=== PATIENT | female | born 1985 | race Caucasian/White ===

== ENCOUNTER 2016-04-30 06:49 | Day surgery (SDC) | payer BC, MEDICAID ==
[2016-04-27 10:50] LABS: HEMOGLOBIN 12.9 g/dL (12.0-15.5); HGB HCT DIFFERENCE -0.3; MEAN CORPUSCULAR VOLUME 88 fl (80-97); RED BLOOD COUNT 4.44 10^6/uL (3.72-5.28); RED CELL DISTRIBUTION WIDTH 14.3 % (11.5-14.0); WHITE BLOOD COUNT 6.6 10^3/uL (4.0-10.5)
[~2016-04-30 06:49] MED LIST: FENTANYL CITRATE INJ/PF 100 MCG/2 ML AMPUL ONE; LACTATED RINGERS 1000 ML IV PRN; LIDOCAINE 0.5% INJ-PF (5 MG/ML) 50 ML SDV SUBCUT PRN; MIDAZOLAM 2 MG/2 ML INJ ONE; PROPOFOL INJ 200 MG/20 ML VIAL IV ONE
[2016-04-30 08:40] LABS: APPEARANCE,URINE SLIGHTLY-CLOUDY; BILIRUBIN,URINE NEGATIVE (NEGATIVE); GLUCOSE, URINE NEGATIVE (NEGATIVE); KETONES,URINE NEGATIVE (NEGATIVE); NITRITE,URINE NEGATIVE (NEGATIVE); PROTEIN,URINE NEGATIVE (NEGATIVE); URINE SPECIFIC GRAVITY 1.024; UROBILINOGEN,URINE NEGATIVE mg/dL (<2.0)
[2016-04-30 08:41] LABS: LEUKOCYTE ESTERASE,URINE TRACE (NEGATIVE)
[2016-04-30] MEDS ORDERED: OXYCODONE-ACETAMINOPHEN 5-325 MG TABLET PO PRN ×4 (09:14→12:00)
[2016-04-30] MEDS ORDERED: PROMETHAZINE HCL INJ 25 MG/1 ML VIAL IV PRN (09:14)
[2016-04-30] MEDS ORDERED: FENTANYL CITRATE INJ/PF 100 MCG/2 ML AMPUL IV PRN ×3 (09:14)
[2016-04-30] MEDS ORDERED: MEPERIDINE HCL/PF INJ 25 MG/1 ML DISP.SYRIN IV PRN (09:14)
[2016-04-30] MEDS ORDERED: DIPHENHYDRAMINE HCL 50 MG/ML VIAL IV PRN (09:14)
--- NOTE | 2016-04-30 09:58 | OPERATIVE REPORT E ---
Operative Report NAME: BAIRON HOFFMAN : 1985 AGE: 31Y DATE OF SURGERY: 04/30/2016 ROOM: PREOPERATIVE DIAGNOSIS: Undesired fertility. POSTOPERATIVE DIAGNOSIS: Undesired fertility. PROCEDURE: Laparoscopic bilateral salpingectomy. SURGEON: EH AMBRIZ M.D. SR. MEDIA MANAGER: Jamilah Tadeo, distribution center assistant student. ANESTHESIA: Dr. Sánchez with general. FINDINGS: Normal uterus, tubes and ovaries. COMPLICATIONS: None. ESTIMATED BLOOD LOSS: 20 mL. SPECIMENS REMOVED: Bilateral fallopian tubes. PROCEDURE IN DETAIL: The patient was taken to the operating room and prepared and draped in a normal sterile fashion in a dorsal lithotomy position. Under sterile conditions, an in-and-out cath of approximately 25 mL of clear urine was performed. A sterile speculum was then placed into the vagina and the cervix was prepped with Betadine, and the cervix was grasped on the anterior lip with a single tooth tenaculum. A Hulka clamp was placed at the cervix for uterine manipulation without difficulty. The speculum was removed and attention was turned to the upper portion of the case after gloves were changed. An umbilical skin incision was made with a scalpel and the Veress needle was introduced into the peritoneal cavity. I had difficulty placing the Veress needle secondary to the patient's body habitus so Optiview was used for peritoneal cavity entry. The abdomen was inflated with approximately 2 L of CO2 gas. The camera was introduced and under direct visualization two 5-mm ports were placed approximately 10 cm on either side of the umbilicus. Instruments were then placed and the bowel was swept away with an atraumatic grasper. Beginning with the right fallopian tube, the LigaSure was introduced through one of the ports and this fallopian tube was removed with the LigaSure following the mesosalpinx and transecting it at the cornua closest to the uterus. This was removed and then a similar procedure was performed on the patient's left fallopian tube without difficulty. Hemostasis was maintained and verified at the end. The instruments were then removed. The ports were removed under direct visualization. The abdomen was deflated of the CO2 gas through the umbilical port without difficulty. The skin was then closed with 4-0 Vicryl at all 3 sites. The patient tolerated procedure well. Sponge, lap and needle counts were correct x2. The patient was taken to recovery in stable condition. DICTATING PHYSICIAN: EH AMBRIZ M.D. [id number] PHY#: [id number] ID: [id number] JOB#: [id number] ACCT: [id number] cc:EH AMBRIZ M.D. >
[2016-04-30] MEDS ORDERED: FENTANYL CITRATE INJ/PF 100 MCG/2 ML AMPUL ONE (10:08)
[2016-04-30] MEDS ORDERED: DEXAMETHASONE SOD PHOSPHATE INJ 4 MG/1 ML VIAL ONE (10:46)
[2016-04-30] MEDS ORDERED: ONDANSETRON HCL INJ/PF 4 MG/2 ML SDV ONE (10:46)
[2016-04-30] MEDS ORDERED: LIDOCAINE 2% INJ-PF (20 MG/ML) 10 ML AMPUL ONE (10:46)
[2016-04-30] MEDS ORDERED: SUCCINYLCHOLINE CHLORIDE INJ 200 MG/10 ML VIAL ONE (10:46)
[2016-04-30] MEDS ORDERED: KETOROLAC TROMETHAMINE INJ/PF 30 MG/1 ML SDV ONE (11:15)
[2016-04-30] MEDS ORDERED: IBUPROFEN 800 MG TABLET PO PRN (12:00)
[2016-04-30] MEDS ORDERED: MORPHINE SULFATE 10 MG/ML INJ IM PRN (12:00)
[2016-04-30 12:45] VITALS: BP 112/74
== END 2016-04-30 12:35 | disposition home or self-care (01) ==
LOC: OROUT 06:49
PROVIDERS: ATTEND Obstetrics & Gynecology
PROC: 0UT74ZZ Resection of Bilateral Fallopian Tubes, Percutaneous Endoscopic Approach (ICD-10-PCS; principal; 2016-04-30 09:00)
DX: Z30.2 Encounter for sterilization (principal); J45.909 Unspecified asthma, uncomplicated; Z79.51 Long term (current) use of inhaled steroids
CPT/HCPCS: 36415; 85027; 81005; 81025; 88302 ×2; 58661; J2250; J1100; J3010; J1885; J0330; J2405; J2704; J3490; 81001; 840

== ENCOUNTER 2016-09-28 03:16 | Emergency (ER) | payer BC, MEDICAID ==
[2016-09-28] MEDS ORDERED: METOCLOPRAMIDE HCL 10 MG TABLET PO ONE (06:55)
--- NOTE | 2016-09-28 06:57 | ER Document Report ---
ED General - General Chief Complaint: Flank Pain Stated Complaint: BACK PAIN Time Seen by Provider: 09/28/16 06:42 Mode of Arrival: Ambulatory Information source: Patient Notes: 31-year-old female presents with complaints of right lateral back cramping pain. Patient notes symptoms started initially with nausea and vomiting. Patient notes she has an intolerance to dairy and this happens often. Patient notes after she vomits her pain usually goes away. Today she vomited in the parking lot noted her symptoms were improving and while waiting in the ED she states her symptoms have all since resolved. Patient denies any fevers or chills TRAVEL OUTSIDE OF THE [place] IN LAST 30 DAYS: No - HPI Onset: Just prior to arrival Onset/Duration: Sudden Quality of pain: Cramping Severity: Mild Pain Level: 1 Associated symptoms: Body/muscle aches, Nausea, Vomiting Exacerbated by: Denies Relieved by: Other - Vomiting Similar symptoms previously: Yes Recently seen / treated by doctor: No - Related Data Allergies/Adverse Reactions: No Known Allergies Allergy (Verified 02/08/16 12:42) Home Medications: Current Home Medications RX: No Home Medications 09/28/16 [History] Past Medical History - Social History Smoking Status: Never Smoker Cigarette use (# per day): No Chew tobacco use (# tins/day): No Smoking Education Provided: No Family History: Reviewed & Not Pertinent Patient has suicidal ideation: No Patient has homicidal ideation: No - Past Medical History Cardiac Medical History: Denies: Hx Coronary Artery Disease, Hx Heart Attack, Hx Hypertension Pulmonary Medical History: Reports: Hx Asthma - inhalers, Hx Bronchitis - hx of Denies: Hx COPD, Hx Pneumonia Neurological Medical History: Denies: Hx Cerebrovascular Accident, Hx Seizures Renal/ Medical History: Denies: Hx Peritoneal Dialysis Musculoskeltal Medical History: Denies Hx Arthritis - Immunizations Hx Diphtheria, Pertussis, Tetanus Vaccination: Yes Review of Systems - Review of Systems Notes: REVIEW OF SYSTEMS: CONSTITUTIONAL : Denies fever, chills, or sweats. Denies recent illness. EENT: Denies eye, ear, throat, or mouth pain or symptoms. Denies nasal or sinus congestion or discharge. Denies throat, tongue, or mouth swelling or difficulty swallowing. CARDIOVASCULAR: Denies chest pain. Denies palpitations or racing or irregular heart beat. Denies ankle edema. RESPIRATORY: Denies cough, cold, or chest congestion. Denies shortness of breath, difficulty breathing, or wheezing. GASTROINTESTINAL: Admits nausea vomiting GENITOURINARY: Denies difficulty urinating, painful urination, burning, frequency, blood in urine, or discharge. FEMALE GENITOURINARY: Denies vaginal bleeding, heavy or abnormal periods, irregular periods. Denies vaginal discharge or odor. MUSCULOSKELETAL: Right upper back pain SKIN: Denies rash, lesions or sores. HEMATOLOGIC : Denies easy bruising or bleeding. LYMPHATIC: Denies swollen, enlarged glands. NEUROLOGICAL: Denies confusion or altered mental status. Denies passing out or loss of consciousness. Denies dizziness or lightheadedness. Denies headache. Denies weakness or paralysis or loss of use of either side. Denies problems with gait or speech. Denies sensory loss, numbness, or tingling. Denies seizures. PSYCHIATRIC: Denies anxiety or stress. Denies depression, suicidal ideation, or homicidal ideation. ALL OTHER SYSTEMS REVIEWED AND NEGATIVE. PHYSICAL EXAMINATION: GENERAL: Well-appearing, well-nourished and in no acute distress. HEAD: Atraumatic, normocephalic. EYES: Pupils equal round and reactive to light, extraocular movements intact, conjunctiva are normal. ENT: Nares patent, oropharynx clear without exudates. Moist mucous membranes. NECK: Normal range of motion, supple without lymphadenopathy LUNGS: Breath sounds clear to auscultation bilaterally and equal. No wheezes rales or rhonchi. HEART: Regular rate and rhythm without murmurs ABDOMEN: Soft, nontender, nondistended abdomen. No guarding, no rebound. No masses appreciated. Female : deferred Musculoskeletal: Normal range of motion, no pitting or edema. No cyanosis. NEUROLOGICAL: Cranial nerves grossly intact. Normal speech, normal gait. Normal sensory, motor exams PSYCH: Normal mood, normal affect. SKIN: Warm, Dry, normal turgor, no rashes or lesions noted. Dictation was performed using [employer] voice recognition software Physical Exam - Vital signs Vitals: Temp Pulse Resp BP Pulse Ox 97.3 F 53 L 18 121/72 100 09/28/16 03:39 09/28/16 03:39 09/28/16 03:39 09/28/16 03:39 09/28/16 03:39 Course - Re-evaluation Re-evalutation: 09/28/16 06:57 Patient's pain was located around the T4 region right around the scapula, at this time she is completely asymptomatic denies any complaints. But she wishes to make sure she is fine before she goes home 09/28/16 08:56 Patient's liver enzymes are noted to be quite elevated, ultrasound pending at this time 09/28/16 10:[address] Carvajal, he requests mrcp 09/28/16 14:49 Dr Carvajal unsure if this is gallbladder or hepatitis, requests hospitalist admit 09/28/16 14:53 dr Moulton defers on admission 09/28/16 14:56 Dr Carvajal [facility] is appropriate I will give follow-up with GI After performing a Medical Screening Examination, I estimate there is LOW risk for ACUTE APPENDICITIS, BOWEL OBSTRUCTION, ACUTE CHOLECYSTITIS, PERFORATED DIVERTICULITIS, INCARCERATED HERNIA, PANCREATITIS, PELVIC INFLAMMATORY DISEASE, PERFORATED ULCER, ECTOPIC , or TUBO-OVARIAN ABSCESS, thus I consider the discharge disposition reasonable. Also, there is no evidence or peritonitis , sepsis, or toxicity. I have reevaluated this patient multiple times and no significant life threatening changes are noted. The patient and I have discussed the diagnosis and risks, and we agree with discharging home with close follow-up with the understanding that symptoms and presentations can change. We also discussed returning to the Emergency Department immediately if new or worsening symptoms occur. We have discussed the symptoms which are most concerning (e.g., bloody stool, fever, changing or worsening pain, vomiting) that necessitate immediate return. - Vital Signs Vital signs: Temp Pulse Resp BP Pulse Ox 98.1 F 60 18 111/68 99 09/28/16 13:40 09/28/16 13:40 09/28/16 13:40 09/28/16 13:40 09/28/16 13:40 - Laboratory Result Diagrams: 09/28/16 08:15 09/28/16 08:15 Laboratory results interpreted by me: 09/28/16 09/28/16 09/28/16 08:05 08:15 08:15 Seg Neutrophils % 80.7 H Carbon Dioxide 31 H Total Bilirubin 3.0 H Direct Bilirubin 1.7 H AST 749 H ALT 788 H Alkaline Phosphatase 138 H Urine Bilirubin SMALL H Urine Urobilinogen 2.0 H - Diagnostic Test Radiology reviewed: Image reviewed, Reports reviewed Discharge - Discharge Clinical Impression: Elevated liver enzymes Nausea & vomiting Qualifiers: Vomiting type: unspecified Vomiting Intractability: non-intractable Qualified Code(s): R11.2 - Nausea with vomiting, unspecified Condition: Stable Instructions: Liver Function Abnormality ([facility]) Referrals: MARIBELL HERNDON MD [ACTIVE STAFF] - Follow up tomorrow
[2016-09-28 08:32] LABS: ABSOLUTE EOSINOPHILS # (AUTO) 0.1 10^3/uL (0.0-0.6); ABSOLUTE LYMPHOCYTES (AUTO) 0.7 10^3/uL (0.5-4.7); ABSOLUTE MONOCYTES (AUTO) 0.2 10^3/uL (0.1-1.4); ABSOLUTE NEUT (AUTO) 4.2 10^3/uL (1.7-8.2); BASOPHILS % (AUTO) 0.9 % (0-2); EOSINOPHILS % (AUTO) 1.8 % (0-6); HEMATOCRIT 41.4 % (36.0-47.0); HEMOGLOBIN 13.9 g/dL (12.0-15.5); HGB HCT DIFFERENCE 0.3; LYMPHOCYTES % (AUTO) 13.4 % (13-45); MEAN CORPUSCULAR HEMOGLOBIN 30.7 pg (27.0-33.4); MEAN CORPUSCULAR HGB CONC 33.6 g/dL (32.0-36.0); MEAN CORPUSCULAR VOLUME 91 fl (80-97); MONOCYTES % (AUTO) 3.2 % (3-13); RED BLOOD COUNT 4.53 10^6/uL (3.72-5.28); RED CELL DISTRIBUTION WIDTH 13.5 % (11.5-14.0); SEGMENTED NEUTROPHILS % (AUTO) 80.7 % (42-78); WHITE BLOOD COUNT 5.2 10^3/uL (4.0-10.5)
[2016-09-28 08:39] LABS: APPEARANCE,URINE CLEAR; BILIRUBIN,URINE SMALL (NEGATIVE); GLUCOSE, URINE NEGATIVE (NEGATIVE); KETONES,URINE NEGATIVE (NEGATIVE); LEUKOCYTE ESTERASE,URINE NEGATIVE (NEGATIVE); NITRITE,URINE NEGATIVE (NEGATIVE); PROTEIN,URINE NEGATIVE (NEGATIVE); URINE SPECIFIC GRAVITY 1.021
[2016-09-28 08:46] LABS: ALANINE AMINOTRANSFERASE 788 U/L (9-52); ALBUMIN 4.1 g/dL (3.5-5.0); ALKALINE PHOSPHATASE 138 U/L (38-126); ANION GAP 5 (5-19); ASPARTATE AMINO TRANSFERASE 749 U/L (14-36); BILIRUBIN,DIRECT 1.7 mg/dL (0.0-0.4); BLOOD UREA NITROGEN 9 mg/dL (7-20); CALCIUM 9.1 mg/dL (8.4-10.2); CARBON DIOXIDE 31 mmol/L (22-30); CHLORIDE 104 mmol/L (98-107); CREATININE RESULT 0.63 mg/dL (0.52-1.25); GLUCOSE 100 mg/dL (75-110); LIPASE 99.5 U/L (23-300); POTASSIUM 4.1 mmol/L (3.6-5.0); SODIUM 139.6 mmol/L (137-145); TOTAL PROTEIN 7.2 g/dL (6.3-8.2)
--- NOTE | 2016-09-28 10:34 | RADIOLOGY REPORT (SQ) ---
EXAM DESCRIPTION: U/S ABDOMEN LIMITED W/O DOP COMPLETED DATE/TIME: 09/28/2016 10:24 am REASON FOR STUDY: elevated liver enzymes COMPARISON: None. TECHNIQUE: Dynamic and static grayscale images acquired of the abdomen and recorded on PACS. Additio nal selected color Doppler and spectral images recorded. LIMITATIONS: Midline bowel gas FINDINGS: PANCREAS: No masses. Visualized pancreatic duct normal caliber. LIVER: No masses. Echotexture normal. LIVER VASCULATURE: Normal directional flow of the main portal vein and hepatic veins. GALLBLADDER: There are multiple tiny stones in the gallbladder including a small stone in the gallbla dder neck. No gallbladder wall thickening or pericholecystic fluid. ULTRASOUND-DETECTED LEWIS'S SIGN: Negative. INTRAHEPATIC DUCTS AND COMMON DUCT: No intrahepatic biliary ductal dilatation. Common bile duct at t he danielle hepatis is 4 mm in diameter. Please note that the distal most common duct is not well seen. Distal ductal stone could be present. INFERIOR VENA CAVA: Normal flow. AORTA: No aneurysm. RIGHT KIDNEY: Normal size. Normal echogenicity. No solid or suspicious masses. No hydronephrosis. No calcifications. PERITONEAL AND RIGHT PLEURAL SPACE: No ascites or effusions. OTHER: No other significant findings. IMPRESSION: Tiny stones in the gallbladder without ultrasound evidence of acute cholecystitis. Distal common duct not well seen. Distal common duct stone could not be excluded. TECHNICAL DOCUMENTATION: JOB ID: [id number] [employer]- All Rights Reserved
[2016-09-28] MEDS ORDERED: NORMAL SALINE 1000 ML 1,000 ML IV ONE (10:41)
--- NOTE | 2016-09-28 13:26 | RADIOLOGY REPORT (SQ) ---
EXAM DESCRIPTION: MRI ABDOMEN WITHOUT COMPLETED DATE/TIME: 09/28/2016 1:03 pm REASON FOR STUDY: mrcp please , elevated liver enzyme COMPARISON: None. Right upper quadrant ultrasound same date TECHNIQUE: Noncontrast MRCP. Source and MIP images reviewed. LIMITATIONS: None. FINDINGS: GALLBLADDER: There are tiny stones in the gallbladder neck without evidence of acute unique cystitis. No pericholecystic fluid or gallbladder wall thickening. Tiny stones are best shown on ax ial series 5, image 20, and coronal series 9, image 14. INTRAHEPATIC DUCTS: Nondilated. EXTRAHEPATIC DUCTS: Common duct is normal caliber. No dilatation of the pancreatic duct. No ductal filling defects noted. PANCREAS: Generally homogeneous, no gross mass or significant signal alteration. No surrounding infl ammatory changes or fluid. Pancreatic duct is normal. LIVER, SPLEEN, KIDNEYS, ADRENALS: No significant abnormality. VESSELS: No evidence of aneurysm. Grossly appropriate flow voids in the major vascular structures. LUNG BASES: Grossly clear. OTHER: No other significant finding. IMPRESSION: Tiny stones in the gallbladder neck without MRCP evidence of acute cholecystitis. No choledocholithiasis. TECHNICAL DOCUMENTATION: JOB ID: [id number] [employer]- All Rights Reserved
--- NOTE | 2016-09-28 15:20 | PDOC CONSULTATION ---
Consultation Consult Date: 09/28/16 Consult reason:: elevated liver enzymes History of Present Illness Admission Date/PCP: VINOD SHEN MD Patient complains of: epigastric pain and generalized malaise History of Present Illness: BAIRON HOFFMAN is a 31 year old female This is a 31 y/o female with a hx of epigastric pain not related to fatty food, not prostprandial, for about 7 months. She denies nausea, vomiting, diarrhea, hemetemesis, hematochetia, fever, or chills. She denies abuse of prescription or OTC drugs, hx of blood transfusion, travel abroad, family or personal history of liver disease, eating raw meat, or hx of IV drug abuse. A liver profile was obtained and showed significant elevation of ALT, AST, Total Bilirubin with even direct and indirect Bilirubin elevation. Because of the unusual location of the pain and the lack of other significant history characteristics, a liver US was ordered. This has identified a normal gallbladder with a few small stones without identification of the CBD. An MRCP has been done revealing a normal GB, CBD, no fluid around the gallbladder wall, no GB wall thickening, and again a few stones inside the gallbladder. I was consulted because of the above findings to provide an opinion about these findings for possible surgical intervention. Past Medical History Cardiac Medical History: Denies: Coronary Artery Disease, Myocardial Infarction, Hypertension Pulmonary Medical History: Reports: Asthma - inhalers, Bronchitis - hx of Denies: Chronic Obstructive Pulmonary Disease (COPD), Pneumonia Neurological Medical History: Denies: Seizures Musculoskeltal Medical History: Denies: Arthritis Hematology: Denies: Anemia Past Surgical History Past Surgical History: Bilateral tube ligation Social History Information Source: Patient Lives with: Family Smoking Status: Never Smoker Frequency of Alcohol Use: None Hx Recreational Drug Use: No Family History Family History: Reviewed & Not Pertinent Parental Family History Reviewed: No - none Children Family History Reviewed: No - none Sibling(s) Family History Reviewed.: No - none Medication/Allergy Home Medications: No Home Medications 09/28/16 Allergies/Adverse Reactions: No Known Allergies Allergy (Verified 02/08/16 12:42) Physical Exam Vital Signs: Temp Pulse Resp BP Pulse Ox 98.1 F 60 18 111/68 99 09/28/16 13:40 09/28/16 13:40 09/28/16 13:40 09/28/16 13:40 09/28/16 13:40 Intake & Output 09/27/16 09/28/16 09/29/16 06:59 06:59 06:59 Weight 96.9 kg Respiratory exam: PRESENT: clear to auscultation beth Cardiovascular exam: PRESENT: RRR GI/Abdominal exam: PRESENT: normal bowel sounds, soft Results Laboratory Results: 09/28/16 08:15 09/28/16 08:15 09/28/16 09/28/16 09/28/16 08:05 08:15 08:15 WBC 5.2 RBC 4.53 Hgb 13.9 Hct 41.4 MCV 91 MCH 30.7 MCHC 33.6 RDW 13.5 Plt Count 153 Seg Neutrophils % 80.7 H Lymphocytes % 13.4 Monocytes % 3.2 Eosinophils % 1.8 Basophils % 0.9 Absolute Neutrophils 4.2 Absolute Lymphocytes 0.7 Absolute Monocytes 0.2 Absolute Eosinophils 0.1 Absolute Basophils 0.0 Sodium 139.6 Potassium 4.1 Chloride 104 Carbon Dioxide 31 H Anion Gap 5 BUN 9 Creatinine 0.63 Est GFR ( Amer) > 60 Est GFR (Non-Af Amer) > 60 Glucose 100 Calcium 9.1 Total Bilirubin 3.0 H AST 749 H ALT 788 H Alkaline Phosphatase 138 H Total Protein 7.2 Albumin 4.1 Lipase 99.5 Urine Color DARK YELLOW Urine Appearance CLEAR Urine pH 5.0 Ur Specific [place] 1.021 Urine Protein NEGATIVE Urine Glucose (UA) NEGATIVE Urine Ketones NEGATIVE Urine Blood NEGATIVE Urine Nitrite NEGATIVE Ur Leukocyte Esterase NEGATIVE Urine WBC (Auto) 3 Urine RBC (Auto) 0 Impressions: Abdomen Ultrasound 09/28/16 08:51 IMPRESSION: Tiny stones in the gallbladder without ultrasound evidence of acute cholecystitis. Distal common duct not well seen. Distal common duct stone could not be excluded. Abdomen MRI 09/28/16 10:39 IMPRESSION: Tiny stones in the gallbladder neck without MRCP evidence of acute cholecystitis. No choledocholithiasis. Assessment & Plan - Diagnosis (1) Abdominal pain Qualifiers: Abdominal location: epigastric Qualified Code(s): R10.13 - Epigastric pain Is this a current diagnosis for this admission?: Yes (2) Cholelithiasis Qualifiers: Cholelithiasis location: gallbladder Cholecystitis presence: without cholecystitis Biliary obstruction: without biliary obstruction Qualified Code(s): K80.20 - Calculus of gallbladder without cholecystitis without obstruction Is this a current diagnosis for this admission?: Yes (3) High transaminase levels Is this a current diagnosis for this admission?: Yes - Plan Summary Plan Summary: A/ Epigastric pain of unusual occurrence US and MRCP show very small stones inside the gallbladder without additional pathology of the gallbladder or CBD Elevated transaminase, total bilirubin, out of proportion compared to minimal cholelithiasis or normal appearing GB and bilairy ducts No acute General Surgery findings identified at this time which might require emergent or urgent operation Rather, based on the history, lack of physical findings, and US/MRCP reports the patient suffers from hepatitis of unknown etiology. The differential diagnosis includes viral or infectious, chemical, or congenital hepatitis vs. isolated transaminitis P/ Consult Hospitalist for medical management of this patient with hepatitis Request and follow-up hepatitis viral serology. GI follow up as in- or outpatient. Please, call us back if patient symptoms worsen or with questions.
[2016-09-28 15:31] VITALS: BP 122/72
[2016-09-28] MEDS ORDERED: NORMAL SALINE 1000 ML 1,000 ML IV PRN (22:47)
[2016-09-28] MEDS ORDERED: PROMETHAZINE HCL 25 MG SUPP.RECT PR PRN (22:47)
[2016-09-28] MEDS ORDERED: HYDROMORPHONE HCL INJ/PF 2 MG/ML AMPULE IV PRN (22:51)
[2016-09-28] MEDS ORDERED: PANTOPRAZOLE SODIUM 40 MG VIAL IV ONE (23:45)
[2016-09-29] MEDS ORDERED: PIPERACILLIN SODIUM/TAZOBACTAM 3.375 GM in NORMAL SALINE 100 ML IV SCH ×2
[2016-09-29] MEDS ORDERED: ONDANSETRON HCL INJ/PF 4 MG/2 ML SDV IV SCH
[2016-09-29] MEDS ORDERED: PIPERACILLIN/TAZOBACTAM 3.375 GM VIAL IV PRN
[2016-09-29] MEDS ORDERED: ENOXAPARIN SODIUM INJ 40 MG/0.4 ML DISP.SYRIN SUBCUT SCH (10:00)
[2016-09-29] MEDS ORDERED: PANTOPRAZOLE SODIUM 40 MG VIAL IV SCH (10:00)
== END 2016-09-28 15:16 | disposition home or self-care (01) ==
LOC: ER 03:16
DX: R74.8 Abnormal levels of other serum enzymes (principal); R11.2 Nausea with vomiting, unspecified; R10.9 Unspecified abdominal pain; M54.9 Dorsalgia, unspecified
CPT/HCPCS: 99285; 96360; 96361; 36415; 83690; 85025; 81025; 80053; 81001; 80074; 74181; 76705; J7030

== ENCOUNTER 2016-09-28 19:15 | Inpatient (IN) | payer BC, MEDICAID ==
--- NOTE | 2016-09-28 20:13 | ER Document Report ---
HPI - HPI Pain Level: 5 Notes: Patient is a 31-year-old female who presents the ED complaining of continued right upper quadrant and epigastric pain with radiation into her right scapula since her discharge from the ED earlier today. Patient states that when she was discharged she was feeling much better, but within an hour of being home her pain started to increase and has now become constant again. The pain is sharp. Patient states that she has been having intermittent nausea and vomiting throughout the day, and did vomit prior to arrival while at home. Patient states that she also was able to eat some food at 1600 today which was last time she had anything. Patient had a complete workup during her appointment earlier today, but was declined admission at that time. Patient states that all of her immunizations are up-to-date. She denies any illicit drug use or IV drug use. Denies any smoking. Denies any exposure to sick contacts or any other recent illness. Denies any recent travel outside of the state or country. [facility]. Denies any headache, fever, URI, sore throat, chest pain, palpitations, syncope, cough, shortness of breath , wheeze, dyspnea, diarrhea, melena, hematochezia, hematemesis, urinary retention, dysuria, hematuria, or rash. - ROS Notes: REVIEW OF SYSTEMS: CONSTITUTIONAL : Denies fever, chills, or sweats. Denies recent illness. EENT: Denies eye, ear, throat, or mouth pain or symptoms. Denies nasal or sinus congestion or discharge. Denies throat, tongue, or mouth swelling or difficulty swallowing. CARDIOVASCULAR: Denies chest pain. Denies palpitations or racing or irregular heart beat. Denies ankle edema. RESPIRATORY: Denies cough, cold, or chest congestion. Denies shortness of breath, difficulty breathing, or wheezing. GASTROINTESTINAL: see hpi GENITOURINARY: Denies difficulty urinating, painful urination, burning, frequency, blood in urine, or discharge. FEMALE GENITOURINARY: Denies vaginal bleeding, heavy or abnormal periods, irregular periods. Denies vaginal discharge or odor. MUSCULOSKELETAL: Denies back or neck pain or stiffness. Denies joint pain or swelling. SKIN: Denies rash, lesions or sores. NEUROLOGICAL: Denies confusion or altered mental status. Denies passing out or loss of consciousness. Denies dizziness or lightheadedness. Denies headache. Denies weakness or paralysis or loss of use of either side. Denies problems with gait or speech. Denies sensory loss, numbness, or tingling. ALL OTHER SYSTEMS REVIEWED AND NEGATIVE. Dictation was performed using [employer] voice recognition software - REPRODUCTIVE LMP: 05/05/15 - DERM Skin Color: Normal, [place] Past Medical History - Social History Smoking Status: Never Smoker Family History: Reviewed & Not Pertinent Patient has suicidal ideation: No Patient has homicidal ideation: No - Past Medical History Cardiac Medical History: Denies: Hx Coronary Artery Disease, Hx Heart Attack, Hx Hypertension Pulmonary Medical History: Reports: Hx Asthma - inhalers, Hx Bronchitis - hx of Denies: Hx COPD, Hx Pneumonia Neurological Medical History: Denies: Hx Cerebrovascular Accident, Hx Seizures Renal/ Medical History: Denies: Hx Peritoneal Dialysis Musculoskeltal Medical History: Denies Hx Arthritis - Immunizations Hx Diphtheria, Pertussis, Tetanus Vaccination: Yes Vertical Provider Document - CONSTITUTIONAL Agree With Documented VS: Yes Notes: PHYSICAL EXAMINATION: GENERAL: Well-appearing, well-nourished and in no acute distress. HEAD: Atraumatic, normocephalic. EYES: Pupils equal round and reactive to light, extraocular movements intact, sclera anicteric, conjunctiva are normal. NECK: Normal range of motion, supple without lymphadenopathy LUNGS: Breath sounds clear to auscultation bilaterally and equal. No wheezes rales or rhonchi. HEART: Regular rate and rhythm without murmurs, rubs, gallops. ABDOMEN: Soft, nondistended abdomen. No guarding, no rebound. No masses appreciated. Normal bowel sounds present. No CVA tenderness bilaterally. + tenderness to the epigastrum and RUQ. ?+de paz. Extremities: No cyanosis, clubbing, or edema b/l. Peripheral pulses 2+. Capillary refill less than 3 seconds. NEUROLOGICAL: Normal speech, normal gait. Normal sensory, motor exams PSYCH: Normal mood, normal affect. SKIN: Warm, Dry, normal turgor, no rashes or lesions noted. - INFECTION CONTROL TRAVEL OUTSIDE OF THE [place] IN LAST 30 DAYS: No - RESPIRATORY O2 Sat by Pulse Oximetry: 100 Course - Re-evaluation Re-evalutation: 09/28/16 22:[address] Quezada: Patient is an afebrile, well-hydrated, 31-year-old female who presents the ED with pancreatitis, questionable correlation with her vitals are stable. PE otherwise unremarkable at this time.gallstones. Her liver enzymes have slightly improved, but her lipase increased from 99-65,000 approximately over the course of today. Patient was made n.p.o. upon arrival. Reviewed with Dr. Carvajal who will take over care and admit to the hospital. Dr. Carvajal reviewed case with patient and spouse who are in agreement. - Vital Signs Vital signs: Temp Pulse Resp BP Pulse Ox 97.6 F 52 L 16 124/72 100 09/28/16 19:21 09/28/16 19:21 09/28/16 19:21 09/28/16 19:21 09/28/16 19:21 - Laboratory Result Diagrams: 09/28/16 20:30 09/28/16 20:30 Discharge - Discharge Clinical Impression: Pancreatitis Qualifiers: Chronicity: acute Pancreatitis type: unspecified pancreatitis type Acute pancreatitis complication: unspecified Qualified Code(s): K85.90 - Acute pancreatitis without necrosis or infection, unspecified Condition: Stable Disposition: ADMITTED INPATIENT Admitting Provider: Surgicalist - Dr. Carvajal Unit Admitted: Surgical Floor - 2nd surgical floor per Dr. Carvajal
[2016-09-28 20:44] LABS: ABSOLUTE EOSINOPHILS # (AUTO) 0.2 10^3/uL (0.0-0.6); ABSOLUTE LYMPHOCYTES (AUTO) 0.7 10^3/uL (0.5-4.7); ABSOLUTE MONOCYTES (AUTO) 0.6 10^3/uL (0.1-1.4); ABSOLUTE NEUT (AUTO) 8.7 10^3/uL (1.7-8.2); BASOPHILS % (AUTO) 0.5 % (0-2); HEMATOCRIT 42.1 % (36.0-47.0); HEMOGLOBIN 13.9 g/dL (12.0-15.5); HGB HCT DIFFERENCE -0.4; LYMPHOCYTES % (AUTO) 6.8 % (13-45); MEAN CORPUSCULAR HEMOGLOBIN 30.5 pg (27.0-33.4); MEAN CORPUSCULAR HGB CONC 33.1 g/dL (32.0-36.0); MEAN CORPUSCULAR VOLUME 92 fl (80-97); MONOCYTES % (AUTO) 6.2 % (3-13); RED BLOOD COUNT 4.56 10^6/uL (3.72-5.28); RED CELL DISTRIBUTION WIDTH 13.4 % (11.5-14.0); SEGMENTED NEUTROPHILS % (AUTO) 84.5 % (42-78); WHITE BLOOD COUNT 10.3 10^3/uL (4.0-10.5)
[2016-09-28] MEDS ORDERED: ONDANSETRON HCL INJ/PF 4 MG/2 ML SDV IV ONE (21:08)
[2016-09-28 21:09] LABS: ALANINE AMINOTRANSFERASE 640 U/L (9-52); ALBUMIN 4.3 g/dL (3.5-5.0); ALKALINE PHOSPHATASE 150 U/L (38-126); ANION GAP 7 (5-19); ASPARTATE AMINO TRANSFERASE 428 U/L (14-36); BILIRUBIN,DIRECT 2.2 mg/dL (0.0-0.4); BILIRUBIN,TOTAL 3.6 mg/dL (0.2-1.3); BLOOD UREA NITROGEN 11 mg/dL (7-20); CALCIUM 8.9 mg/dL (8.4-10.2); CARBON DIOXIDE 29 mmol/L (22-30); CHLORIDE 103 mmol/L (98-107); CREATININE RESULT 0.71 mg/dL (0.52-1.25); GLUCOSE 101 mg/dL (75-110); POTASSIUM 3.9 mmol/L (3.6-5.0); SODIUM 139.1 mmol/L (137-145); TOTAL PROTEIN 7.6 g/dL (6.3-8.2)
[2016-09-28 21:56] LABS: APPEARANCE,URINE CLEAR; BILIRUBIN,URINE NEGATIVE (NEGATIVE); GLUCOSE, URINE NEGATIVE (NEGATIVE); KETONES,URINE 20 mg/dL (NEGATIVE); LEUKOCYTE ESTERASE,URINE TRACE (NEGATIVE); NITRITE,URINE NEGATIVE (NEGATIVE); PROTEIN,URINE NEGATIVE (NEGATIVE); URINE SPECIFIC GRAVITY 1.016; UROBILINOGEN,URINE NEGATIVE mg/dL (<2.0)
[2016-09-28 22:05] LABS: LIPASE 68322.3 U/L (23-300)
[2016-09-28] MEDS ORDERED: NORMAL SALINE 1000 ML 1,000 ML IV ONE (22:23)
[2016-09-28] MEDS ORDERED: PIPERACILLIN/TAZOBACTAM 3.375 GM VIAL IV ONE (23:04)
[2016-09-29] MEDS ORDERED: HYDROMORPHONE HCL INJ/PF 2 MG/ML AMPULE INJ PRN (02:21)
[2016-09-29] MEDS ORDERED: ONDANSETRON HCL INJ/PF 4 MG/2 ML SDV IV PRN (02:23)
[2016-09-29] MEDS ORDERED: PANTOPRAZOLE SODIUM 40 MG VIAL IV SCH (02:30)
[2016-09-29] MEDS: NORMAL SALINE 1000 ML 1,000 ML IV PRN ×3 (02:46→21:18)
[2016-09-29] MEDS ORDERED: PIPERACILLIN/TAZOBACTAM 3.375 GM VIAL IV ONE (04:14)
[2016-09-29] MEDS: PIPERACILLIN SODIUM/TAZOBACTAM 3.375 GM in NORMAL SALINE 100 ML IV SCH ×4 (05:48→23:28)
[2016-09-29 06:47] LABS: ABSOLUTE BASOPHILS # (AUTO) 0.1 10^3/uL (0.0-0.2); ABSOLUTE EOSINOPHILS # (AUTO) 0.2 10^3/uL (0.0-0.6); ABSOLUTE LYMPHOCYTES (AUTO) 1.4 10^3/uL (0.5-4.7); ABSOLUTE MONOCYTES (AUTO) 0.4 10^3/uL (0.1-1.4); BASOPHILS % (AUTO) 1.5 % (0-2); EOSINOPHILS % (AUTO) 2.7 % (0-6); HEMATOCRIT 39.2 % (36.0-47.0); HGB HCT DIFFERENCE -0.2; LYMPHOCYTES % (AUTO) 20.2 % (13-45); MEAN CORPUSCULAR HEMOGLOBIN 30.6 pg (27.0-33.4); MEAN CORPUSCULAR HGB CONC 33.2 g/dL (32.0-36.0); MEAN CORPUSCULAR VOLUME 92 fl (80-97); MONOCYTES % (AUTO) 5.3 % (3-13); RED BLOOD COUNT 4.24 10^6/uL (3.72-5.28); RED CELL DISTRIBUTION WIDTH 13.6 % (11.5-14.0); SEGMENTED NEUTROPHILS % (AUTO) 70.3 % (42-78); WHITE BLOOD COUNT 7.1 10^3/uL (4.0-10.5)
[2016-09-29 07:03] LABS: ALANINE AMINOTRANSFERASE 506 U/L (9-52); ALBUMIN 3.4 g/dL (3.5-5.0); ALKALINE PHOSPHATASE 126 U/L (38-126); ASPARTATE AMINO TRANSFERASE 240 U/L (14-36); BILIRUBIN,DIRECT 0.7 mg/dL (0.0-0.4); BILIRUBIN,TOTAL 1.4 mg/dL (0.2-1.3); TOTAL PROTEIN 6.2 g/dL (6.3-8.2)
[2016-09-29 07:47] LABS: AMYLASE 3025 U/L (30-110); LIPASE 12740.6 U/L (23-300)
[2016-09-29] MEDS: ENOXAPARIN SODIUM INJ 40 MG/0.4 ML DISP.SYRIN SUBCUT SCH (10:34)
--- NOTE | 2016-09-29 12:01 | PDOC PROGRESS REPORT ---
Subjective Progress Note for:: 09/29/16 Subjective:: pateint feels comfortable, no n/v, no abdominal pain Physical Exam Vital Signs: Temp Pulse Resp BP Pulse Ox 97.6 F 51 L 16 117/71 99 09/29/16 07:51 09/29/16 07:51 09/29/16 07:51 09/29/16 07:51 09/29/16 07:51 Intake & Output 09/28/16 09/29/16 09/30/16 06:59 06:59 06:59 Intake Total 0 498 Balance 0 498 Weight 96.5 kg General appearance: PRESENT: no acute distress Respiratory exam: PRESENT: clear to auscultation beth Cardiovascular exam: PRESENT: RRR GI/Abdominal exam: PRESENT: normal bowel sounds, soft Results Laboratory Results: 09/29/16 05:41 09/29/16 09/29/16 05:41 05:41 WBC 7.1 RBC 4.24 Hgb 13.0 Hct 39.2 MCV 92 MCH 30.6 MCHC 33.2 RDW 13.6 Plt Count 135 L Seg Neutrophils % 70.3 Lymphocytes % 20.2 Monocytes % 5.3 Eosinophils % 2.7 Basophils % 1.5 Absolute Neutrophils 5.0 Absolute Lymphocytes 1.4 Absolute Monocytes 0.4 Absolute Eosinophils 0.2 Absolute Basophils 0.1 Total Bilirubin 1.4 H AST 240 H ALT 506 H Alkaline Phosphatase 126 Total Protein 6.2 L Albumin 3.4 L Amylase 3025 H Lipase 54306.6 H Assessment & Plan - Diagnosis (2) Pancreatitis Qualifiers: Chronicity: acute Pancreatitis type: unspecified pancreatitis type Acute pancreatitis complication: unspecified Qualified Code(s): K85.90 - Acute pancreatitis without necrosis or infection, unspecified - Plan Summary Plan Summary: A/ Acute gallstone pancreatitis Improved symptoms Decreased Lipase today to 12K Total bilirubin down from 3.0 to 1.4 CBC normal P/ Continue NPO. IV hydration Continue monitoring of LFT's, amylase, lipase Laparoscopic cholecystectomy next week, once pancreatitis has resolved as per normalization of amylase/lipase
[2016-09-29] MEDS ORDERED: SUCRALFATE 1 GM TABLET PO ONE (12:45)
--- NOTE | 2016-09-29 15:59 | PDOC H&P ---
History of Present Illness Admission Date/PCP: 09/29/16 01:48 Patient complains of: Epigastric pain getting worse History of Present Illness: BAIRON HOFFMAN is a 31 year old female This is a 31 y/o female with a hx of epigastric pain not related to fatty food, not prostprandial, for about 7 months. She denies nausea, vomiting, diarrhea, hemetemesis, hematochetia, fever, or chills. She denies abuse of prescription or OTC drugs, hx of blood transfusion, travel abroad, family or personal history of liver disease, eating raw meat, or hx of IV drug abuse. A liver profile was obtained and showed significant elevation of ALT, AST, Total Bilirubin with even direct and indirect Bilirubin elevation. Because of the unusual location of the pain and the lack of other significant history characteristics, a liver US was ordered. This has identified a normal gallbladder with a few small stones without identification of the CBD. An MRCP has been done revealing a normal GB, CBD, no fluid around the gallbladder wall, no GB wall thickening, and again a few stones inside the gallbladder. I was consulted because of the above findings to provide an opinion about these findings for possible surgical intervention. The pateint was discharged from thr Er earlier today, but returns tonight with worsening abofdminal pain. A repeat blood work reveals a marked increase of Lipase (68K). Past Medical History Cardiac Medical History: Denies: Coronary Artery Disease, Myocardial Infarction, Hypertension Pulmonary Medical History: Reports: Asthma - inhalers, Bronchitis - hx of Denies: Chronic Obstructive Pulmonary Disease (COPD), Pneumonia Neurological Medical History: Denies: Seizures Musculoskeltal Medical History: Denies: Arthritis Hematology: Denies: Anemia Social History Smoking Status: Never Smoker Frequency of Alcohol Use: None Hx Recreational Drug Use: No Drugs: None Hx Prescription Drug Abuse: No - Advance Directive Resuscitation Status: Full Code Family History Family History: Reviewed & Not Pertinent Parental Family History Reviewed: Yes - none Children Family History Reviewed: Yes - none Sibling(s) Family History Reviewed.: Yes - none Medication/Allergy Home Medications: No Home Medications 09/28/16 Allergies/Adverse Reactions: No Known Allergies Allergy (Verified 09/28/16 19:21) Physical Exam Vital Signs: Temp Pulse Resp BP Pulse Ox 97.3 F 54 L 18 112/65 97 09/29/16 11:19 09/29/16 11:19 09/29/16 11:19 09/29/16 11:19 09/29/16 11:19 Intake & Output 09/28/16 09/29/16 09/30/16 06:59 06:59 06:59 Intake Total 0 498 Balance 0 498 Weight 96.5 kg Results Laboratory Results: 09/29/16 05:41 09/29/16 09/29/16 05:41 05:41 WBC 7.1 RBC 4.24 Hgb 13.0 Hct 39.2 MCV 92 MCH 30.6 MCHC 33.2 RDW 13.6 Plt Count 135 L Seg Neutrophils % 70.3 Lymphocytes % 20.2 Monocytes % 5.3 Eosinophils % 2.7 Basophils % 1.5 Absolute Neutrophils 5.0 Absolute Lymphocytes 1.4 Absolute Monocytes 0.4 Absolute Eosinophils 0.2 Absolute Basophils 0.1 Total Bilirubin 1.4 H AST 240 H ALT 506 H Alkaline Phosphatase 126 Total Protein 6.2 L Albumin 3.4 L Amylase 3025 H Lipase 17101.6 H Assessment & Plan - Diagnosis (2) Pancreatitis Qualifiers: Chronicity: acute Pancreatitis type: unspecified pancreatitis type Acute pancreatitis complication: unspecified Qualified Code(s): K85.90 - Acute pancreatitis without necrosis or infection, unspecified - Plan Summary Plan Summary: Gallstone pancreatitis Severe abdominal pain Cholelithiasis Elevated lipase 68K Improved total bilirubin down to 1.5 P/ Admit NPO IVF IV antibiotics for cholangitis prophylaxis Daily CBC, LFT's, Amylase, and Lipase Pain control Patient can breastfeed When LFT's have improved, lipase/amylase have almost normalized, and patient is pain free, I will proceed with laparoscopic appendectomy possible open.
--- NOTE | 2016-09-29 16:05 | HISTORY AND PHYSICAL E ---
History and Physical NAME: BAIRON HOFFMAN : 1985 AGE: 31Y ADMITTED: 09/29/2016 ROOM: 535 Following review of the lab work obtained after the second ER visit done by the patient, the patient presented with elevated lipase as per the patient was suffering from gallstone pancreatitis. Therefore, the patient will be admitted for gallstone pancreatitis and choledocholithiasis. PLAN: 1. Keep n.p.o. 2. IV hydration. 3. Pain control with Dilaudid. 4. Repeat blood work, liver profile, CBC, comprehensive metabolic profile, amylase and lipase tomorrow and daily. 5. Once the liver profile has normalized and amylase and lipase have become closer to normal values, the patient will be taken to surgery to undergo laparoscopic cholecystectomy. DICTATING PHYSICIAN: GIOVANNY WALKER M.D. [id number] PHY#: [id number] ID: [id number] JOB#: [id number] ACCT: [id number] cc:GIOVANNY WALKER M.D. [facility], [facility]ITAL[facility]i
[2016-09-29] MEDS: SUCRALFATE 1 GM TABLET PO SCH ×2 (17:15→23:28)
[2016-09-30] MEDS: NORMAL SALINE 1000 ML 1,000 ML IV PRN ×3 (04:46→22:04)
[2016-09-30] MEDS: SUCRALFATE 1 GM TABLET PO SCH ×4 (05:26→23:22)
[2016-09-30] MEDS: PIPERACILLIN SODIUM/TAZOBACTAM 3.375 GM in NORMAL SALINE 100 ML IV SCH ×4 (05:27→23:22)
[2016-09-30 06:03] LABS: ABSOLUTE BASOPHILS # (AUTO) 0.1 10^3/uL (0.0-0.2); ABSOLUTE EOSINOPHILS # (AUTO) 0.3 10^3/uL (0.0-0.6); ABSOLUTE LYMPHOCYTES (AUTO) 1.6 10^3/uL (0.5-4.7); ABSOLUTE MONOCYTES (AUTO) 0.4 10^3/uL (0.1-1.4); ABSOLUTE NEUT (AUTO) 4.3 10^3/uL (1.7-8.2); BASOPHILS % (AUTO) 0.8 % (0-2); EOSINOPHILS % (AUTO) 4.4 % (0-6); HEMATOCRIT 37.8 % (36.0-47.0); HEMOGLOBIN 12.5 g/dL (12.0-15.5); HGB HCT DIFFERENCE -0.3; MEAN CORPUSCULAR HEMOGLOBIN 30.4 pg (27.0-33.4); MEAN CORPUSCULAR VOLUME 92 fl (80-97); MONOCYTES % (AUTO) 5.9 % (3-13); RED BLOOD COUNT 4.11 10^6/uL (3.72-5.28); RED CELL DISTRIBUTION WIDTH 13.5 % (11.5-14.0); SEGMENTED NEUTROPHILS % (AUTO) 64.9 % (42-78); WHITE BLOOD COUNT 6.7 10^3/uL (4.0-10.5)
[2016-09-30 06:29] LABS: ALANINE AMINOTRANSFERASE 317 U/L (9-52); ALBUMIN 3.2 g/dL (3.5-5.0); ALKALINE PHOSPHATASE 115 U/L (38-126); AMYLASE 411 U/L (30-110); ANION GAP 12 (5-19); ASPARTATE AMINO TRANSFERASE 71 U/L (14-36); BILIRUBIN,DIRECT 0.5 mg/dL (0.0-0.4); BLOOD UREA NITROGEN 12 mg/dL (7-20); CALCIUM 8.5 mg/dL (8.4-10.2); CARBON DIOXIDE 20 mmol/L (22-30); CHLORIDE 110 mmol/L (98-107); GLUCOSE 61 mg/dL (75-110); LIPASE 769.1 U/L (23-300); POTASSIUM 3.8 mmol/L (3.6-5.0); SODIUM 141.6 mmol/L (137-145); TOTAL PROTEIN 5.7 g/dL (6.3-8.2)
[2016-09-30] MEDS: ENOXAPARIN SODIUM INJ 40 MG/0.4 ML DISP.SYRIN SUBCUT SCH (09:28)
--- NOTE | 2016-09-30 15:50 | PDOC PROGRESS REPORT ---
Subjective Progress Note for:: 09/30/16 Subjective:: patient is comfortable, denies abdominal pain Physical Exam Vital Signs: Temp Pulse Resp BP Pulse Ox 97.3 F 42 L 16 121/71 100 09/29/16 23:11 09/29/16 23:11 09/29/16 23:11 09/29/16 23:11 09/29/16 23:11 Intake & Output 09/29/16 09/30/16 10/01/16 06:59 06:59 06:59 Intake Total 0 2332 Output Total 1500 Balance 0 832 Weight 96.5 kg 96.5 kg Respiratory exam: PRESENT: clear to auscultation beth Cardiovascular exam: PRESENT: RRR GI/Abdominal exam: PRESENT: normal bowel sounds, soft Results Laboratory Results: 09/30/16 05:01 09/30/16 05:01 09/30/16 09/30/16 05:01 05:01 WBC 6.7 RBC 4.11 Hgb 12.5 Hct 37.8 MCV 92 MCH 30.4 MCHC 33.0 RDW 13.5 Plt Count 127 L Seg Neutrophils % 64.9 Lymphocytes % 24.0 Monocytes % 5.9 Eosinophils % 4.4 Basophils % 0.8 Absolute Neutrophils 4.3 Absolute Lymphocytes 1.6 Absolute Monocytes 0.4 Absolute Eosinophils 0.3 Absolute Basophils 0.1 Sodium 141.6 Potassium 3.8 Chloride 110 H Carbon Dioxide 20 L Anion Gap 12 BUN 12 Creatinine 0.70 Est GFR ( Amer) > 60 Est GFR (Non-Af Amer) > 60 Glucose 61 L Calcium 8.5 Total Bilirubin 1.0 AST 71 H ALT 317 H Alkaline Phosphatase 115 Total Protein 5.7 L Albumin 3.2 L Amylase 411 H Lipase 769.1 H Assessment & Plan - Diagnosis (2) Pancreatitis Qualifiers: Chronicity: acute Pancreatitis type: unspecified pancreatitis type Acute pancreatitis complication: unspecified Qualified Code(s): K85.90 - Acute pancreatitis without necrosis or infection, unspecified - Plan Summary Plan Summary: A/ Acute gallstone pancreatitis Patient is asymptomatic Decreased Lipase today to 769, Amylase 400 Total bilirubin normal CBC normal P/ Continue IV hydration Start ice chips and sips of water Continue monitoring of LFT's, amylase, lipase Laparoscopic cholecystectomy, possible open, possible cholangiogram tomorrow Procedure, risks, benefits, complications, alternatives, including bleeding from the liver and or injury of the common bile duct requiring transfer to a tertiary medical center for open repair have been explained to the patient; her questions were answered, and she decides to proceed.
[2016-10-01 05:25] LABS: ABSOLUTE BASOPHILS # (AUTO) 0.1 10^3/uL (0.0-0.2); ABSOLUTE EOSINOPHILS # (AUTO) 0.3 10^3/uL (0.0-0.6); ABSOLUTE LYMPHOCYTES (AUTO) 1.6 10^3/uL (0.5-4.7); ABSOLUTE MONOCYTES (AUTO) 0.3 10^3/uL (0.1-1.4); ABSOLUTE NEUT (AUTO) 3.7 10^3/uL (1.7-8.2); BASOPHILS % (AUTO) 2.2 % (0-2); EOSINOPHILS % (AUTO) 4.9 % (0-6); HEMATOCRIT 35.6 % (36.0-47.0); HEMOGLOBIN 11.9 g/dL (12.0-15.5); HGB HCT DIFFERENCE 0.1; LYMPHOCYTES % (AUTO) 26.1 % (13-45); MEAN CORPUSCULAR HEMOGLOBIN 30.8 pg (27.0-33.4); MEAN CORPUSCULAR HGB CONC 33.4 g/dL (32.0-36.0); MEAN CORPUSCULAR VOLUME 92 fl (80-97); MONOCYTES % (AUTO) 4.7 % (3-13); RED BLOOD COUNT 3.86 10^6/uL (3.72-5.28); RED CELL DISTRIBUTION WIDTH 13.2 % (11.5-14.0); SEGMENTED NEUTROPHILS % (AUTO) 62.1 % (42-78)
[2016-10-01] MEDS: SUCRALFATE 1 GM TABLET PO SCH ×3 (05:42→18:38)
[2016-10-01] MEDS: PIPERACILLIN SODIUM/TAZOBACTAM 3.375 GM in NORMAL SALINE 100 ML IV SCH ×3 (05:42→18:38)
[2016-10-01 05:44] LABS: ALANINE AMINOTRANSFERASE 220 U/L (9-52); ALKALINE PHOSPHATASE 100 U/L (38-126); AMYLASE 85 U/L (30-110); ANION GAP 11 (5-19); ASPARTATE AMINO TRANSFERASE 33 U/L (14-36); BILIRUBIN,DIRECT 0.4 mg/dL (0.0-0.4); BILIRUBIN,TOTAL 0.9 mg/dL (0.2-1.3); BLOOD UREA NITROGEN 9 mg/dL (7-20); CALCIUM 8.4 mg/dL (8.4-10.2); CARBON DIOXIDE 18 mmol/L (22-30); CHLORIDE 109 mmol/L (98-107); CREATININE RESULT 0.67 mg/dL (0.52-1.25); GLUCOSE 58 mg/dL (75-110); LIPASE 120.9 U/L (23-300); SODIUM 137.5 mmol/L (137-145); TOTAL PROTEIN 5.4 g/dL (6.3-8.2)
[2016-10-01] MEDS ORDERED: MIDAZOLAM 2 MG/2 ML INJ ONE (07:06)
[2016-10-01] MEDS ORDERED: FENTANYL CITRATE INJ/PF 100 MCG/2 ML AMPUL ONE (07:06)
[2016-10-01] MEDS ORDERED: IBUPROFEN INJ 800 MG/8 ML VIAL IV ONE (07:06)
[2016-10-01] MEDS ORDERED: PROPOFOL INJ 200 MG/20 ML VIAL IV ONE (07:06)
[2016-10-01] MEDS ORDERED: ACETAMINOPHEN 100 ML IV ONE (07:06)
[2016-10-01] MEDS ORDERED: HYDROMORPHONE HCL INJ/PF 2 MG/ML AMPULE ONE (07:07)
[2016-10-01] MEDS ORDERED: BUPIVACAINE HCL 0.25 % INJ/PF (2.5 MG/1 ML) 30 ML VIAL ONE (07:23)
[2016-10-01] MEDS ORDERED: FENTANYL CITRATE INJ/PF 100 MCG/2 ML AMPUL IV PRN ×3 (08:55)
[2016-10-01] MEDS ORDERED: PROMETHAZINE HCL INJ 25 MG/1 ML VIAL IV PRN ×2 (08:55)
[2016-10-01] MEDS ORDERED: ONDANSETRON HCL INJ/PF 4 MG/2 ML SDV IV PRN ×2 (08:55→09:20)
[2016-10-01] MEDS ORDERED: MORPHINE SULFATE 10 MG/ML INJ IV PRN ×2 (08:55→09:20)
[2016-10-01] MEDS ORDERED: DIPHENHYDRAMINE HCL 50 MG/ML VIAL IV PRN (08:55)
[2016-10-01] MEDS ORDERED: MEPERIDINE HCL/PF INJ 25 MG/1 ML DISP.SYRIN IV PRN (08:55)
[2016-10-01] MEDS ORDERED: OXYCODONE-ACETAMINOPHEN 5-325 MG TABLET PO PRN ×3 (08:55→09:21)
[2016-10-01] MEDS ORDERED: KETOROLAC TROMETHAMINE 10 MG TABLET PO PRN (09:21)
--- NOTE | 2016-10-01 10:32 | OPERATIVE REPORT E ---
Operative Report NAME: BAIRON HOFFMAN : 1985 AGE: 31Y DATE OF SURGERY: 10/01/2016 ROOM: 535 PREOPERATIVE DIAGNOSIS: GALLSTONE PANCREATIS. POSTOPERATIVE DIAGNOSIS: GALLSTONE PANCREATITIS. PROCEDURE: Laparoscopic cholecystectomy. SURGEON: JAMAR MARSH M.D. ANESTHESIA: General. COMPLICATIONS: None. ESTIMATED BLOOD LOSS: Scant. DRAINS: None. TISSUE REMOVED OR ALTERED: One gallbladder with contents. COMPLICATIONS: None. SUMMARY OF PROCEDURE: The patient was taken from preoperative holding area in the main operating room where general anesthesia was induced. Arms were abducted, abdomen exposed, prepped and draped in sterile fashion. Surgical plan and a surgical time out are conducted. Skin was anesthetized with 1% lidocaine without epinephrine. A vertical incision was made over the umbilicus. Veress needle inserted into the peritoneal cavity and a pneumoperitoneum was established. Veress needle was removed, a 5 mm port was established and a 5 mm viewing scope was established. Under direct visualization, 3 additional ports were placed: One in the subxiphoid, two in the subcostal position. Findings were significant for a moderately inflamed gallbladder, no bile peritonitis. There was no evidence of visceral or vascular injury during port insertion. Gallbladder was grasped in the fundus and infundibulum and reflected up over the liver bed. The neck of the gallbladder's junction with the cystic duct was dissected out. The anatomy here was classic. Cystic artery and cystic duct were both in their usual locations. The [place] of [place] was opened widely and the critical view obtained. Photographs were obtained of the [place]. The cystic duct was milked of any possible stones, clipped twice proximally, once distally and divided with scissors. The cystic artery was surrounded with a right inguinal clamp, clipped twice proximally, once distally, and divided with scissors. There was a small posterior branch which was also clipped once proximally, once distally, and divided with scissors. The gallbladder was removed from the liver bed using hook cautery resection. The specimen was brought out of the patient through the supraumbilical port site without spillage of contents. We returned to the peritoneal cavity, checked for bleeding and there was none. Sponge and needle counts correct. All ports removed under direct visualization. Pneumoperitoneum evacuated, wounds were closed with 3-0 Vicryl, Benzoin and Steri-Strips. Patient was awakened from anesthesia and taken to recovery room in stable condition. DICTATING PHYSICIAN: JAMAR MARSH M.D. [id number] PHY#: [id number] ID: [id number] JOB#: [id number] ACCT: [id number] cc:JAMAR MARSH M.D. >
[2016-10-01] MEDS ORDERED: ONDANSETRON HCL INJ/PF 4 MG/2 ML SDV ONE ×2 (10:44→11:59)
[2016-10-01] MEDS ORDERED: SUCCINYLCHOLINE CHLORIDE INJ 200 MG/10 ML VIAL ONE (11:59)
[2016-10-01] MEDS ORDERED: GLYCOPYRROLATE INJ 0.4 MG/2 ML VIAL ONE (11:59)
[2016-10-01] MEDS ORDERED: NEOSTIGMINE METHYLSULFATE 10 MG/10 ML VIAL ONE (11:59)
[2016-10-01] MEDS ORDERED: METOCLOPRAMIDE HCL INJ/PF 10 MG/2 ML SDV ONE (11:59)
[2016-10-01] MEDS ORDERED: DEXAMETHASONE SOD PHOSPHATE INJ 4 MG/1 ML VIAL ONE (11:59)
[2016-10-01] MEDS ORDERED: LIDOCAINE 2% INJ-PF (20 MG/ML) 10 ML AMPUL ONE (11:59)
[2016-10-01] MEDS ORDERED: ROCURONIUM BROMIDE INJ 50 MG/5 ML VIAL IV ONE (11:59)
[2016-10-01 20:30] VITALS: BP 120/69
--- NOTE | 2016-10-03 09:57 | DISCHARGE SUMMARY E ---
Discharge Summary NAME: BAIRON HOFFMAN : 1985 AGE: 31Y ADMITTED: 09/29/2016 DISCHARGED: 10/01/2016 SUMMARY OF HOSPITALIZATION: Thee patient is a 31-year-old white female with a history of abdominal pain. She was admitted to the surgicalist service for further evaluation and treatment for gallstone pancreatitis. Patient had an MRCP, which revealed no evidence of choledocholithiasis. Gallbladder ultrasound showed gallstones confirmed by MRCP. Patient was admitted to the surgicalist service where she was kept n.p.o. on IV fluids. Her liver function studies and lipase level stabilized. She was subsequently taken to the operating room by Dr. Birmingham where she underwent laparoscopic cholecystectomy on 10/01/2016. She tolerated the operation well and had no complications. Postoperatively, she was getting about well, tolerating a diet, and was discharged home later that day. FINAL DIAGNOSES: 1. Symptomatic cholelithiasis and cholecystitis status post laparoscopic cholecystectomy. 2. Gallstone pancreatitis, with resolution. DISPOSITION: The patient will be discharged home in the care of her family. Follow up with Dr. Birmingham in approximately 2 weeks. Resume preoperative medications, diet, and activity. DICTATING PHYSICIAN: JAMAR BIRMINGHAM M.D. [id number] PHY#: [id number] ID: [id number] JOB#: [id number] ACCT: [id number] cc:Eliceo MORRIS MD, M.D. [facility],
== END 2016-10-01 20:20 | disposition home or self-care (01) | DRG 417 ==
LOC: ER 19:15 → EH 22:50 → UNDOADMIN 22:50 → 5 09-29 01:24 → EH 09-29 01:24 → 5 09-29 01:48 → EH 09-29 01:48
PROVIDERS: ADMIT Surgery; ATTEND Surgery
PROC: 0FT44ZZ Resection of Gallbladder, Percutaneous Endoscopic Approach (ICD-10-PCS; principal; 2016-10-01 08:30)
DX: K80.64 Calculus of gallbladder and bile duct with chronic cholecystitis without obstruction (principal); K85.10 Biliary acute pancreatitis without necrosis or infection; J45.909 Unspecified asthma, uncomplicated
CPT/HCPCS: 36415; 790; 80053; 80076; 81001; 81025; 82150; 83690; 85025; 88304; 96374; 99284; J0131; J0330; J1100; J1170; J1741; J2250; J2405; J2543; J2704; J2765; J3010; J3490; J7030